=== PATIENT | female | born 1980 | race Caucasian/White ===

== ENCOUNTER 2019-09-27 13:25 | Inpatient (IN) ==
--- NOTE | 2019-09-27 14:36 | Diag Imaging Result Doc PS360 ---
EXAM: SHOULDER-LEFT HISTORY: atraumatic pain, immobility TECHNIQUE: Two views COMPARISON: None. FINDINGS: No fracture. No dislocation. No separation at the acromioclavicular joint. No other bony abnormality. IMPRESSION: Negative exam Electronically signed by Raúl Leon 09/27/2019 2:34 PM
[2019-09-27] MEDS ORDERED: NORCO-5 PO ONE (15:18)
[2019-09-27 15:22] LABS: BASO# 0.13 X1000 (0.0-0.2); BASO% 0.9 % (0.0-0.8); EOS# 0.45 X1000 (0.0-0.7); EOS% 3.1 % (0.0-10.0); HEMATOCRIT 40.6 % (37.0-47.0); IMM GRAN# 0.03 X1000 (0.0-0.04); IMM GRAN% 0.2 % (0.0-0.5); LYMPH# 3.36 X1000 (1.2-3.4); LYMPH% 23.1 % (20.5-51.1); MCH 25.8 PG (27-31); MCV 80.7 FL (81-99); MONO# 0.95 X1000 (0.11-0.59); MONO% 6.5 % (1.7-9.3); MPV 9.3 FL (7.4-10.4); NEUT# 9.62 X1000 (1.4-6.5); NEUT% 66.2 % (42.2-75.2); PLT 464 X1000 (130-400); RBC 5.03 XMIL (4.2-5.4); RDW 13.6 % (11.5-14.5); WBC 14.54 X1000 (4.8-10.8)
[2019-09-27 16:25] LABS: SED RATE 51 mm/hr (0-20)
[2019-09-27 16:33] LABS: AGAP 16; ALB/GLOB RATIO 0.9; ALBUMIN 3.7 g/dL (3.5-5.0); ALKALINE PHOSPHATASE 70 U/L (32-104); BUN 10 mg/dL (8-22); CALCIUM 9.1 mg/dL (8.8-10.2); CHLORIDE 97 mmol/L (98-107); COSMO 275; CREATININE 0.6 mg/dL (0.5-0.9); ESTIMATED GFR > 60; GLUCOSE 135 mg/dL (70-104); GOT 60 U/L (10-30); GPT 86 U/L (10-36); POTASSIUM 4.4 mmol/L (3.5-5.1); SODIUM 137 mmol/L (136-145); TCO2 24 mmol/L (25-35); TOTAL BILIRUBIN 0.28 mg/dL (0.20-1.00)
[2019-09-27] MEDS ORDERED: VANCOMYCIN 1 GM/NS 1 GM/250 ML IVPB IV ONE (16:59)
[2019-09-27] MEDS ORDERED: VANCOMYCIN IV PER PHARMACY MISC SCH (17:15)
[2019-09-27] MEDS ORDERED: AZACTAM 1 GM in NS 50 ML IV ONE (17:30)
--- NOTE | 2019-09-27 18:14 | PROVIDER DOCUMENTATION ---
This chart was entered by Francisca Vital Scribe, acting as scribe for Jarod Pan MD. HPI-Musculoskeletal Pain/Inj - GENERAL Chief Complaint: Extremity Pain Stated Complaint: L SHOULDER PAIN Time Seen by Provider: 09/27/19 14:04 Source: patient - HX OF PRESENT ILLNESS-MUSKULOSKELTAL Nature of Presenting Problem: 39 y/o female presents to the ED with complaint of left shoulder pain. 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 She states left shoulder pain began two days ago, yesterday pain began to radiate the entire arm to her left wrist, and today she is unable to move her left shoulder at all. Quality of Pain: reports: aching, burning Onset/Duration: 2 days ago Timing: getting worse Modifying Factors: improves with: immobilization. worse with: movement, palpation Any recent injury?: No Locality of Occurance: Home Similar Symptoms Previously?: No Recently seen or treated by another doctor?: No - UPPER EXTREMITY PAIN/INJURY Extremities Pain Location: shoulder: left Context / Method of Injury: reports: unknown Associated Symptoms: reports: denies symptoms Review of Systems - Adult - REVIEW OF SYSTEMS - ADULT Constitutional: denies: chills, fever, weight loss Eyes: reports: no symptoms reported Ears, Nose, Mouth & Throat: reports: no symptoms reported Cardiovascular: reports: no symptoms reported Respiratory: reports: no symptoms reported Gastrointestinal: denies: diarrhea, nausea, vomiting Genitourinary: reports: no symptoms reported Musculoskeletal: reports: joint pain (leftshoulder). denies: joint swelling, muscle weakness Integumentary: reports: no symptoms reported Neurological: reports: no symptoms reported Psychiatric: reports: no symptoms reported Endocrine: reports: no symptoms reported Hematologic/Lymphatic: reports: no symptoms reported Allergic/Immunologic: reports: no symptoms reported All Other Systems: Reviewed and Negative Past History - Adult - PAST MEDICAL HISTORY-ADULT Review of Records: reports: Old Records Reviewed, Nursing Assessment Review, Medications Reviewed Major Childhood Illnesses: reports: denies history Cardiovascular: reports: denies history Respiratory: reports: asthma Gastrointestinal: reports: denies history Obstetrical/Gynecological: reports: denies history Genitourinary: reports: denies history Musculoskeletal: reports: denies history Neurological: reports: denies history Psychiatric: reports: denies history Endocrine/Immune: reports: Diabetes - PRIOR SURGERIES/PROCEDURES Surgical/Procedure History: reports: reviewed, not pertinent - IMMUNIZATION STATUS Childhood Immunizations: See Nurse Assessment Flu Vaccine: See Nurse Assessment - FAMILY HISTORY Family History: reviewed, not pertinent - SOCIAL HISTORY Smoking: other (former smoker) Physical Exam-Injury Related - Physical Exam-Injury Related Initial Vital Signs Reviewed: Yes General Appearance: alert, obese Head, Ears, Nose, Mouth & Throat: normocephalic/atraumatic Extremity: tenderness (to palpatation left shoulder), other (decreased ROM and significant pain with passive ROM). negative: deformity, pulse deficit, swelling Neurologic: other (neuro intact LUE) Progress - PLAN OF CARE/RESULTS Progress/Plan/Lab Results: Vital Signs - 8 hr 09/27/19 14:11 09/27/19 15:34 Temperature 99.0 F Pulse Rate 100 H 95 H Respiratory Rate 19 18 Blood Pressure 164/105 160/114 O2 Sat by Pulse Oximetry 98 98 Laboratory Results - last 24 hr 09/27/19 09/27/19 09/27/19 15:08 15:08 15:08 WBC 14.54 H RBC 5.03 Hgb 13.0 Hct 40.6 MCV 80.7 L MCH 25.8 L MCHC 32.0 L RDW Std Deviation 13.6 Plt Count 464 H MPV 9.3 Immature Gran % (Auto) 0.2 Neut % (Auto) 66.2 Lymph % (Auto) 23.1 [place] % (Auto) 6.5 Eos % (Auto) 3.1 Baso % (Auto) 0.9 H Immature Gran # (Auto) 0.03 Neut # (Auto) 9.62 H Lymph # (Auto) 3.36 [place] # (Auto) 0.95 H Eos # (Auto) 0.45 Baso # (Auto) 0.13 ESR 51 H Sodium 137 Potassium 4.4 Chloride 97 L Carbon Dioxide 24 L Anion Gap 16 BUN 10 Creatinine 0.6 Estimated GFR/1.73 m2 > 60 BUN/Creatinine Ratio 17 Glucose 135 H Calculated Osmolality 275 Calcium 9.1 Total Bilirubin 0.28 AST 60 H ALT 86 H Alkaline Phosphatase 70 C-Reactive Prot, Quant 17.18 H Total Protein 8.0 Albumin 3.7 Globulin 4.3 Albumin/Globulin Ratio 0.9 Orders Category Date Time Status Nursing- MD Consult Request ROUTINE Care 09/27/19 17:10 Active Physician/Provider Consults Routine Cons 09/27/19 17:09 Ordered SHOULDER-LEFT [RAD] Stat Exams 09/27/19 14:16 Completed CBC WITH DIFF [HEME] Stat Lab 09/27/19 15:08 Completed CMP [COMPREHENSIVE METABOLIC PANEL] [CHEM] Stat Lab 09/27/19 15:08 Completed CRP [C REACTIVE PROT QUANT] [CHEM] Stat Lab 09/27/19 15:08 Completed SED RATE [HEME] Stat Lab 09/27/19 15:08 Completed Aztreonam [Azactam] 1 gm Med 09/27/19 17:30 Discontinued 0.9% Sodium Chloride Inj [Ns] 50 ml IV ONCE Aztreonam [Azactam] 1 gm Med 09/27/19 17:15 Ordered 0.9% Sodium Chloride Inj [Ns] 50 ml IV Q8H Hydrocodone/APAP 5 mg/325 mg [[place]-5] Med 09/27/19 15:18 Discontinued 1 each PO NOW ONE Morphine Med 09/27/19 17:10 Active 2 mg IV Q4H PRN PRN Pharmacy Order [Vancomycin IV Per Pharmacy] Med 09/27/19 17:15 Active 1 each MISC DIRECTED Vancomycin 1 gm/Ns Med 09/27/19 16:59 Discontinued 1 gm in 250 ml IV NOW 1431: Will obtain left shoulder radiographs as well as CBC and sed rate. 1519: The patient is asking for pain medications. She states she has been taking Ibuprofen at home without relief. 1600: WBC 14.54. C-reactive protein 17.18. The patient is afebrile. Ordered chemistries and awaiting sed rate particularly given the history of diabetes and concern is for possible septic joint. 1613: The patient is unchanged. She states h/o JRA was in [place] and she has not seen shaker out locally for this nor has she had any symptoms since the age of 7. The patient states this pain has progressively worsened over the past two days. Will consulting Dr. Perez Result Diagrams: 09/27/19 15:08 09/27/19 15:08 - XRAY 1 XRAY: Left XRAY Study: Shoulder Impression: Normal (EXAM: SHOULDER-LEFT HISTORY: atraumatic pain, immobility TECHNIQUE: Two views COMPARISON: None. FINDINGS: No fracture. No d islocation. No separation at the acromioclavicular joint. No other bony abnormality. IMPRESSION: Negative exam Electronically signed by Raúl Edward 09/27/2019 2:34 PM) - CONSULTS/PCP/HOSPITALIST Notification #1 *Consult/PCP/Hospitalist*: Dr. Perez, Orthopedics Time Discussed: 16:15 Reason/Comments: possible septic joint Consult Disposition: Admit (Consider percutaneous arthrocentesis by Radiologist under fluoroscopy versus surgical intervention by Dr. Perez by attending physician) #2 Consult: Hospitalist paged at [phone] Time Discussed: 16:57 Reason/Comments: septic joint Consult Disposition: Admit Departure - Departure Date of Disposition Decision: 09/27/19 Time of Disposition Decision: 16:49 DIAGNOSIS: Septic arthritis Disposition: ADMITTED INPATIENT 09 Certified Medical Emergency: Emergent Condition: Stable Referrals and Follow-Ups: Lokesh Jenkins [Primary Care Provider] - - Critical Care Note This patient required my direct & personal management of CC.: No Attestation - Physician/ BATSHEVA Attestation Patient care was provided by Advanced Practice Provider:: No The physician spent face to face time with patient:: Yes Advanced Practice Provider documentation review:: Supervising physician onsite and consulted in the evaluation and care of this patient. The physician did have a face to face encounter with the patient. This chart was documented by the indicated scribe, (Francisca Vital, Aishwarya) and accurately reflects the services I performed and decisions made by me, Jarod Pan MD, as attested by the provider's signature.
[2019-09-27] MEDS ORDERED: ZOFRAN IV PRN (18:36)
[2019-09-27] MEDS ORDERED: PERCOCET-5 PO PRN (18:38)
[2019-09-27] MEDS: DAPAGLIFLOZIN PROPANEDIOL PO SCH (18:45)
--- NOTE | 2019-09-27 20:44 | HISTORY AND PHYSICAL ---
CHIEF COMPLAINT: Left shoulder pain. HPI: This is a 39-year-old female with a prior history of juvenile rheumatoid arthritis in a patient who was diagnosed at 7 years old and has not had any problems nor followed up with a physician for this since the age of 8. She comes to the emergency room complaining of left shoulder pain. She states it began 2 days ago. At first it was a nagging type pain. Over yesterday in the afternoon it began to radiate down to her wrist. Today she complains of shoulder pain with any movement or with palpation to the shoulder area. The pain is constant going down the outside of her shoulder just to about her elbow. She is able to move her elbow, wrist and fingers, has no pain in moving her wrists or finger. She has no decreased movement or sensation. She is able to move and bend her elbow somewhat until she states that it starts to pull at the muscles and her shoulder begins to hurt. She cannot rotate. She is able to move her elbow as long as she moves it very slow but is movement. She denied any injury, any lifting or pulling in the last 2 to 3 weeks. PAST MEDICAL HISTORY: 1. Juvenile rheumatoid arthritis. 2. Diabetes mellitus. 3. Gastroesophageal reflux disease. 4. Hypertension. 5. Hyperlipidemia. PAST SURGICAL HISTORY: Cholecystectomy, , tubal ligation, tonsillectomy and bilateral knee scopes. SOCIAL HISTORY: She denies any alcohol, tobacco, or illicit drug use. ALLERGIES: Ibuprofen which causes anaphylaxis and penicillins which cause a rash. REVIEW OF SYSTEMS: Discussed with patient with pertinent positives stated in the HPI. She denies any dizziness or syncope, any chest pain or palpitations, any shortness of breath, cough, fever, chills, night sweats, recent weight loss or weight gain, any nausea, vomiting, diarrhea, constipation, black or bloody vomitus or stools any hematuria, dysuria, frequency, urgency. PHYSICAL EXAMINATION: GENERAL: This is a 39-year-old female who is sitting up in the bed in the emergency room in no distress. VITAL SIGNS: Blood pressure is 160/94 with a heart rate of 100, respirations are 18, temperature is 99 degrees, O2 saturation 98%. HEENT: Head is normocephalic, atraumatic. Mucous membranes are moist. Pupils are equal, round, react to light. NECK: Supple with trachea midline. No JVD. CARDIOVASCULAR: Regular rate and rhythm. S1 and S2 are appreciated. No murmur. PULMONARY: Breath sounds are clear. No increased work of breathing noted. Chest rises and falls symmetric respiration. GASTROINTESTINAL: Abdomen soft, nontender, nondistended with bowel sounds in all 4 quadrants. GENITOURINARY: No CVA or suprapubic tenderness. NEUROLOGIC: She is alert and oriented x3. SKIN: Warm and dry. Left shoulder [*]. LABS: WBC is 14.5 with hemoglobin 13, hematocrit 40.6, platelets 464,000. Sodium 137, potassium 4.4, BUN 10, creatinine 0.6 with a glucose of 135. CRP is 17.8 with sedimentation rate 51. Shoulder x-ray reveals a negative exam. No fracture, no dislocation, no separation at the acromioclavicular joint. No other bony abnormality. ASSESSMENT: This is a 39-year-old female with 1. Septic arthritis. 2. Left shoulder pain secondary to #1. 3. Leukocytosis. 4. Diabetes mellitus type 2. 5. History of juvenile rheumatoid arthritis diagnosed at 7 years old in a patient who has not followed up for this since 8 or 9 years old. PLAN: 1. She will be admitted to the hospital. Will consult Orthopedics. 2. Antibiotic coverage of Azactam and vancomycin. 3. Pain Management morphine 2 mg IV q.4 hours p.r.n. 4. Gastric acid suppression Prilosec. 5. Pattern blood glucose with sliding scale insulin. 6. We will mobilize her left arm for pain control with neurovascular checks every 4 hours. 7. Further treatments pending hospital course. Dictated by KATHRIN Smith for Jeremy Carrington MD cc: KATHRIN Smith MD
[2019-09-27] MEDS: CYMBALTA PO SCH (21:46)
[2019-09-27] MEDS: PRILOSEC PO SCH (21:46)
[2019-09-27 22:23] LABS: BILIRUBIN URINE NEGATIVE (NEGATIVE); BLOOD URINE NEGATIVE (NEGATIVE); COLOR YELLOW; GLUCOSE URINE >1000 mg/dL (NEGATIVE); KETONE URINE NEGATIVE (NEGATIVE); LEUKOCYTES URINE NEGATIVE (NEGATIVE); NITRITE URINE NEGATIVE (NEGATIVE); PROTEIN URINE 50 mg/dL (NEGATIVE); SP GRAVITY URINE 1.043; TURBIDITY URINE CLEAR (CLEAR); URINE SOURCE CLEAN CATCH; UROBILINOGEN URINE NORMAL (NORMAL)
[2019-09-27 22:26] LABS: UR EPITHELIAL CELLS <10 /HPF (<10); URINE BACTERIA NEGATIVE /HPF; URINE RBC <10 /HPF (<10); URINE WBC <10 /HPF (<10)
[2019-09-27 22:28] LABS: URINE CASTS NONE SEEN; URINE CRYSTALS NONE SEEN; URINE SMALL ROUND CELLS NONE SEEN; URINE YEAST PRESENT
[2019-09-27] MEDS: HUMALOG SUBQ SCH (23:56)
[2019-09-28] MEDS: MORPHINE IV PRN ×3 (02:21→21:00)
[2019-09-28] MEDS: AZACTAM 1 GM in NS 50 ML IV SCH ×3 (04:27→20:58)
[2019-09-28] MEDS ORDERED: NS 500 ML ONE (04:30)
[2019-09-28] MEDS ORDERED: VANCOMYCIN 2 GM in NS 500 ML IV SCH ×2 (06:00→23:00)
[2019-09-28 06:10] LABS: BASO# 0.04 X1000 (0.0-0.2); BASO% 0.3 % (0.0-0.8); EOS# 0.52 X1000 (0.0-0.7); EOS% 3.8 % (0.0-10.0); HEMATOCRIT 37.5 % (37.0-47.0); HEMOGLOBIN 12.2 g/dL (12.0-16.0); IMM GRAN# 0.03 X1000 (0.0-0.04); IMM GRAN% 0.2 % (0.0-0.5); LYMPH# 3.14 X1000 (1.2-3.4); MCH 26.6 PG (27-31); MCHC 32.5 g/dL (33-37); MCV 81.9 FL (81-99); MONO# 0.94 X1000 (0.11-0.59); MONO% 6.9 % (1.7-9.3); MPV 9.2 FL (7.4-10.4); NEUT% 65.8 % (42.2-75.2); PLT 427 X1000 (130-400); RBC 4.58 XMIL (4.2-5.4); RDW 13.5 % (11.5-14.5); WBC 13.67 X1000 (4.8-10.8)
[2019-09-28 06:48] LABS: AGAP 13; BUN 11 mg/dL (8-22); CALCIUM 8.4 mg/dL (8.8-10.2); CHLORIDE 100 mmol/L (98-107); COSMO 274; CREATININE 0.6 mg/dL (0.5-0.9); ESTIMATED GFR > 60; GLUCOSE 143 mg/dL (70-104); SODIUM 136 mmol/L (136-145); TCO2 23 mmol/L (25-35)
[2019-09-28] MEDS: HUMALOG SUBQ SCH ×4 (06:57→20:59)
--- NOTE | 2019-09-28 09:50 | CONSULTATION ---
DATE OF CONSULTATION: 09/28/2019 CHIEF COMPLAINT: Left shoulder pain. HISTORY OF PRESENT ILLNESS: This is a 39-year-old female who has a 2-day history of increasing shoulder pain. She could not even lift it yesterday. Was admitted through the ER, diagnosed with possible sepsis with possible septic arthritis. She was admitted and placed on vancomycin. I was asked to see her in orthopedic consultation. PAST MEDICAL HISTORY: Includes diabetes, GERD, hypertension, hyperlipidemia, history of possible rheumatoid arthritis as a juvenile. PAST SURGICAL HISTORY: section with a tubal, tonsillectomy, knee arthroscopy, and cholecystectomy. SOCIAL HISTORY: Denies drug use. Denies taking tobacco or alcohol. ALLERGIES: Ibuprofen and penicillin. The penicillin causes a rash. The ibuprofen causes anaphylaxis. REVIEW OF SYSTEMS: Review of systems is negative except as noted in the HPI. PHYSICAL EXAMINATION: Reveals a well-developed, well-nourished female. She is cooperative with the exam. Really, today, she has no redness or warmth about her shoulder and really minimal pain with range of motion of her shoulder. LABORATORY DATA: Laboratory values reveal white count of 14 that has gone down to 13 today. ASSESSMENT: Possible septic left shoulder. PLAN: She is much improved today after antibiotics. We can move her shoulder without pain. It has not even been 24 hours. I think we can continue the course of antibiotics for now, stay on the vancomycin. Reassess her tomorrow. We can still consider aspiration of her shoulder under ultrasound by the radiologist versus arthroscopy with arthroscopic lavage of her shoulder. cc: Fausto Perez MD
[2019-09-28] MEDS: GLUCOPHAGE PO SCH ×2 (10:37→19:33)
[2019-09-28] MEDS: DAPAGLIFLOZIN PROPANEDIOL PO SCH (10:37)
--- NOTE | 2019-09-28 11:52 | PROGRESS NOTE ---
DATE: 09/28/2019 SUBJECTIVE: The patient reports much better after we started antibiotics yesterday. She is able to move the left shoulder. Still some pain, but definitely much better in comparing with yesterday. OBJECTIVE: Vital Signs: Temperature 98.8 degrees, heart rate 83, respiratory rate 16, blood pressure 134/67, O2 saturation 96% on room air. General: This is a 39-year-old, female, lying in bed in no acute distress. Cardiovascular: S1 and S2 heard. No murmurs, gallops, or rubs. Regular rate and rhythm. Respiratory: Clear bilaterally to auscultation. No work of breathing or using accessory muscles. Abdomen: Soft, nontender to palpation. Bowel sounds present. No organomegaly. Extremities: Left shoulder with minimal pain with range of motion. I do not see any erythema. I do not feel any warmth in the extremity today. Neurological: The patient is alert and oriented x3. Moves all 4 extremities. LABORATORY DATA: White cell count 13.67. BMP is okay. ASSESSMENT AND PLAN: 1. Left shoulder pain secondary to septic arthritis. The patient is responding to antibiotics. Currently, she is receiving vancomycin and Azactam. Will continue with the same management. The patient is not requiring too much pain medication. Will continue with morphine as needed. The patient has been seen by Orthopedics, and they are not planning to do any procedure. They will check on her tomorrow, and if the patient continues to improve, I do not think we will need to do any procedure on her. Will continue to monitor this patient closely. 2. Diabetes mellitus type 2. Will continue with sliding scale insulin and Accu-Cheks before meals and also at bedtime. 3. Disposition. Will continue to monitor this patient closely. We may discharge this patient tomorrow if she continues to improve. cc: Jeremy Carrington MD
[2019-09-28] MEDS: PRILOSEC PO SCH (20:59)
[2019-09-28] MEDS: CYMBALTA PO SCH (21:18)
[2019-09-29] MEDS: AZACTAM 1 GM in NS 50 ML IV SCH ×2 (05:52→12:11)
[2019-09-29] MEDS: HUMALOG SUBQ SCH ×2 (07:28→12:18)
[2019-09-29] MEDS: GLUCOPHAGE PO SCH (09:00)
[2019-09-29] MEDS: DAPAGLIFLOZIN PROPANEDIOL PO SCH (09:01)
--- NOTE | 2019-09-29 12:01 | ORTHOPAEDICS PROGRESS NOTE ---
DATE: 09/29/2019 SUBJECTIVE DATA: Ms. Hoyt is up in her room. She just got a shower. She states she is feeling much better. Her pain to that shoulder is greatly reduced. OBJECTIVE DATA: On left upper extremity exam, she has no tenderness to palpation today. She has greater range of motion today. Her pain is much more tolerable today. There is no erythema, and I do not feel any warmth. LABORATORY DATA: Her white count is 13.67, which is down from 14.54, hemoglobin and hematocrit 12.2 and 37.5, platelet count is 427,000. BUN and creatinine are 11 and 0.6. ASSESSMENT: Possible septic left shoulder. PLAN: Ms. Hoyt has continued to improve on IV antibiotics. She has more movement to the shoulder today, and has no pain. I do not see any need for a surgical procedure. The antibiotics definitely seem to be working. She should be discharged. We would be happy to see her as an outpatient. Will continue to follow her while she is in the hospital. Please call with any issues. Dictated by KATHRIN Menendez for Fausto Perez MD cc: KATHRIN Menendez MD
[2019-09-29 12:23] VITALS: BP 136/84
--- NOTE | 2019-09-29 17:54 | DISCHARGE SUMMARY ---
ADMISSION DATE: 09/27/2019 DISCHARGE DATE: 09/29/2019 DISCHARGE DIAGNOSES: 1. Left shoulder septic arthritis, improved. 2. Diabetes mellitus type 2. CONSULTATION: Dr. Perez from Orthopedics. PROCEDURES: Shoulder x-ray showed negative exam. HOSPITAL COURSE: This is a 39-year-old female who was admitted to the hospital because of severe left shoulder pain. Her workup in the ER revealed elevation of white cell count. On physical examination at the beginning, showed really severe pain in the shoulder. For suspicion of septic arthritis, we consulted Orthopedics and also we provided strong IV antibiotics. The patient next day reported feeling much better, definitely able to move the right shoulder. So we decided to keep this patient 1 more day. Actually Orthopedics reports that this patient does not need to have any surgical approach. So patient is going to be discharged in stable condition. We will provide antibiotics for 10 days, and if pain persists, she is recommended to see Orthopedics in the office in a couple of weeks. DISCHARGE PHYSICAL EXAMINATION: Vital signs: Temperature 97.9 degrees, heart rate 91, respiratory rate 16, blood pressure 136/84, O2 saturation 98% on room air. General: This is a 39- year-old female lying in bed, in no acute distress. Cardiovascular: S1, S2 heard. No murmurs, gallops, or rubs. Regular rate and rhythm. Respiratory: Clear bilaterally to auscultation. No work of breathing or using accessory muscles. Abdomen: Soft, nontender to palpation. Bowel sounds present. No organomegaly. Extremities: No clubbing, cyanosis, or edema. Peripheral pulses present in both legs. Neurological: The patient alert and oriented x3. Moves 4 extremities. DISCHARGE DISPOSITION: Home to self-care. LIST OF MEDICATIONS: 1. Cefdinir 300 mg 1 tablet p.o. b.i.d. for 10 days. 2. Doxycycline 100 mg 1 tablet p.o. b.i.d. for 10 days. 3. Angora 5 mg 1 tablet p.o. every 4 hours as needed for pain. cc: Jeremy Carrington MD
[2019-09-29] MEDS ORDERED: SINGULAIR PO SCH (21:00)
== END 2019-09-29 13:42 | disposition home or self-care (01) | DRG 550 ==
LOC: ED 13:25 → 4N 13:26 → EDIPHOLD 19:43 → 4N 20:11
PROVIDERS: ATTEND Internal Medicine